=== PATIENT | male | born 1955 | race American Indian/Alaskan Native ===

== ENCOUNTER 2020-03-23 06:06 | Observation (INO) | payer MEDICARE ==
[2020-03-18 12:01] LABS: Hematocrit 38.4 % (35.5-45.6); Hemoglobin 13.2 gm/dl (11.8-15.2); Mean Corpuscular HGB Conc 34 % (32-34); Mean Corpuscular Volume 83 fl (84-94); Platelet Count 216 K/mm3 (140-440); Red Blood Count 4.65 M/mm3 (3.65-5.03)
[2020-03-18 12:07] LABS: Red Cell Distribution Width 21.9 % (13.2-15.2)
[2020-03-18 12:23] LABS: Albumin 4.6 g/dL (3.9-5); Calcium 10.1 mg/dL (8.4-10.2)
--- NOTE | 2020-03-18 13:15 | Anesthesia Consultation ---
Anesthesia Consult and Med Hx Date of service: 03/23/20 - Airway Anesthetic Teeth Evaluation: Partials (upper) ROM Head & Neck: Adequate Mental/Hyoid Distance: Adequate Mallampati Class: Class II Intubation Access Assessment: Probably Good - Pulmonary Exam CTA: Yes - Cardiac Exam Cardiac Exam: RRR - Pre-Operative Health Status ASA Pre-Surgery Classification: ASA3 Proposed Anesthetic Plan: General - Pulmonary Hx Smoking: Yes (quit 6 yrs ago) COPD: Yes (maintance and rescue inhalers) Home Oxygen Therapy: Yes (3L w/ exertion) Hx Sleep Apnea: No (DESHAUN PRE SCREEN HIGH RISK) - Cardiovascular System Hx Hypertension: Yes Hx Heart Attack/AMI: No Hx Percutaneous Transluminal Coronary Angioplasty (PTCA): No Hx Cardia Arrhythmia: No - Central Nervous System CVA: No - Gastrointestinal Hx Gastroesophageal Reflux Disease: No - Endocrine Hx Renal Disease: No Hx Liver Disease: No Hx Insulin Dependent Diabetes: Yes (instructed to take 1/2 usual long acting dose night before surgery) Hx Thyroid Disease: No - Other Systems Hx Obesity: No - Additional Comments Anesthesia Medical History Comments: No hx anesthetic complications.
[~2020-03-23 06:06] MED LIST: ACETAMINOPHEN 500 MG TAB PO SCH; CELECOXIB 200 MG CAP PO NR; GABAPENTIN 300 MG CAP PO NR; LACTATED RINGERS 1,000 ML IV SCH; MAGNESIUM OXIDE 400 MG TAB PO SCH; MIDAZOLAM 2 MG/2 ML INJ IV NR; VANCOMYCIN 1,250 MG in SODIUM CHLORIDE 0.9% 250ML 250 ML IV SCH; VANCOMYCIN/NS 1 GM/250 ML 1 GM/250 ML BAG IV SCH
[2020-03-23] MEDS ORDERED: HYDROmorphone 1 MG/1 ML INJ ONE (07:12)
[2020-03-23] MEDS ORDERED: propofoL 200 MG/20 ML VIAL IV ONE (07:12)
[2020-03-23] MEDS ORDERED: LIDOCAINE MPF (2%) 20 MG/1 ML VIAL 5 ML ONE (07:12)
[2020-03-23] MEDS ORDERED: NEOMY 40 MG/POLYMYXIN B 200,000 UNITS/ML (GU) AMPULE IR ONE (07:13)
[2020-03-23] MEDS ORDERED: SODIUM CHLORIDE 0.9% 50 ML ONE (07:13)
[2020-03-23] MEDS ORDERED: BUPIVACAINE/PF (0.5%) 5 MG/1 ML 30 ML VIAL INFILTRATI ONE ×2 (07:13→08:25)
--- NOTE | 2020-03-23 07:20 | Anesthesia Day of Surgery ---
Anesthesia Day of Surgery - Day of Surgery Patient Examined: Yes Patient H&P Reviewed: Yes Patient is NPO: Yes Pulmonary Clearance: Yes
[2020-03-23] MEDS ORDERED: ALBUTEROL 8.5 GM MDI INHALATION IH ONE (07:42)
[2020-03-23] MEDS ORDERED: ONDANSETRON 4 MG/2 ML INJ IV PRN (08:00)
[2020-03-23] MEDS ORDERED: HYDROmorphone 1 MG/1 ML INJ IV PRN (08:00)
[2020-03-23] MEDS ORDERED: SODIUM CHLORIDE 0.9% 50 ML IVPB IV ONE (08:26)
[2020-03-23] MEDS ORDERED: SODIUM CHLORIDE 0.9% IRR 1,500 ML BOTTLE IR ONE (08:26)
[2020-03-23] MEDS ORDERED: ONDANSETRON 4 MG/2 ML INJ ONE (09:34)
--- NOTE | 2020-03-23 09:47 | Short Stay Summary ---
Short Stay Documentation Date of service: 03/23/20 - History H&P: obtained from office - Allergies and Medications Current Medications: Allergies No Known Allergies Allergy (Verified 03/16/20 16:57) Home Medications Medication Instructions Recorded Confirmed Last Taken Type Albuterol Sulfate [Proventil Hfa] 2 puff IH PRN PRN 03/16/20 03/23/20 03/22/20 08:00 History Aspirin [Adult Aspirin] 81 mg PO DAILY 03/16/20 03/23/20 03/16/20 08:00 History Insulin Glargine [Lantus VIAL] 30 units SUB-Q QHS 03/16/20 03/23/20 03/22/20 17:00 History Metformin HCl [Glucophage] 1,000 mg PO BID 03/16/20 03/23/20 03/22/20 17:00 History Tiotropium [place] [Spiriva 2 puff IH DAILY 03/16/20 03/23/20 03/22/20 08:00 History Respimat] allopurinoL [Zyloprim] 100 mg PO QDAY 03/16/20 03/23/20 03/22/20 08:00 History AtorvaSTATin [Lipitor] 80 mg PO QHS 03/18/20 03/23/20 03/22/20 21:00 History Budesonide/Formoterol Fumarate 2 puff IH DAILY 03/18/20 03/23/20 03/22/20 08:00 History [Symbicort 160-4.5 Mcg Inhaler] Lisinopril/Hydrochlorothiazide 1 each PO DAILY 03/18/20 03/23/20 03/22/20 08:00 History [Zestoretic 10-12.5 mg Tablet] Naproxen [Naprosyn] 500 mg PO PRN PRN 03/18/20 03/18/20 Unknown History glipiZIDE [Glucotrol] 10 mg PO QDAY 03/18/20 03/23/20 03/22/20 08:00 History Active Medications Acetaminophen (Acetaminophen 500 Mg Tab) 1,000 mg PO PREOP BAILEY Stop: 03/23/20 23:59 Last Admin: 03/23/20 07:05 Dose: 1,000 mg Documented by: Celecoxib (Celecoxib 200 Mg Cap) 200 mg PO PREOP NR Stop: 03/23/20 23:59 Last Admin: 03/23/20 07:05 Dose: 200 mg Documented by: Gabapentin (Gabapentin 300 Mg Cap) 300 mg PO PREOP NR Stop: 03/23/20 23:59 Last Admin: 03/23/20 07:05 Dose: 300 mg Documented by: Hydromorphone HCl (Hydromorphone 1 Mg/1 Ml Inj) 0.25 mg IV Q10MIN PRN PRN Reason: Pain, Moderate (4-6) Stop: 03/23/20 17:00 Hydromorphone HCl (Hydromorphone 1 Mg/1 Ml Inj) 0.5 mg IV Q10MIN PRN PRN Reason: Pain , Severe (7-10) Stop: 03/23/20 17:00 Lactated Ringer's (Lactated Ringers) 1,000 mls @ 50 mls/hr IV DIRECT BAILEY Stop: 03/23/20 23:59 Last Admin: 03/23/20 07:10 Dose: 50 mls/hr Documented by: Vancomycin HCl 1,250 mg/ (Sodium Chloride) 275 mls @ 166.667 mls/hr IV PREOP BAILEY Last Admin: 03/23/20 07:20 Dose: 166.667 mls/hr Documented by: Magnesium Oxide (Magnesium Oxide 400 Mg Tab) 400 mg PO PREOP BAILEY Stop: 03/23/20 23:59 Last Admin: 03/23/20 07:05 Dose: 400 mg Documented by: Midazolam HCl (Midazolam 2 Mg/2 Ml Inj) 2 mg IV PREOP NR Stop: 03/23/20 23:59 Ondansetron HCl (Ondansetron 4 Mg/2 Ml Inj) 4 mg IV ONCE PRN PRN Reason: Nausea And Vomiting Stop: 03/23/20 17:00 - Brief post op/procedure progress note Date of procedure: 03/23/20 Pre-op diagnosis: ed Procedure: ipp ams cx 21cm + 3, scrotaplasty Anesthesia: GETA Surgeon: LUL MESA Estimated blood loss: 50-100ml Specimen disposition: to lab (scrotal skin) Condition: stable - Hospital course Hospital course: pt has bactrim & norco post op info on chart WRAP REMOVED---INCISION LOOKS GOOD DC HALL ---DONE - Disposition Condition at discharge: Stable Short Stay Discharge Plan Follow up with: NANETTE LYNCH MD [Primary Care Provider] - 7 Days
[2020-03-23] MEDS ORDERED: DEXTROSE 50% IN WATER (25GM) 50 ML SYRINGE IV PRN (09:48)
[2020-03-23] MEDS ORDERED: NON-FORMULARY EACH (Metformin Hcl [Glucophage] 1,000 MG Tablet) PO SCH (10:00)
[2020-03-23] MEDS ORDERED: NON-FORMULARY EACH (Budesonide/Formoterol Fumarate [Symbicort 160-4.5 Mcg Inhaler] 10.2 GM IH SCH (10:00)
[2020-03-23] MEDS ORDERED: NON-FORMULARY EACH (Tiotropium Bromide [Spiriva Respimat] 4 GM Mist.Inhal) IH SCH (10:00)
[2020-03-23] MEDS ORDERED: NON-FORMULARY EACH (Lisinopril/Hydrochlorothiazide [Zestoretic 10-12.5 Mg Tablet] 1 EACH T PO SCH (10:00)
[2020-03-23] MEDS: HYDROmorphone 1 MG/1 ML INJ IV PRN ×2 (10:09→10:19)
--- NOTE | 2020-03-23 10:19 | Operative Report ---
PREOPERATIVE DIAGNOSIS: Erectile dysfunction. POSTOPERATIVE DIAGNOSIS: Erectile dysfunction. PROCEDURE: Insertion of inflatable penile prosthesis (AMS 21 cm device +3 cm rear tip neon tube pumper) scrotoplasty insertion of intracorporal pharmacologic agent. SURGEON: Dr. Tim Cox DIRECTOR OF COMPENSATION: Ramona Weeks. ANESTHESIA: General. ESTIMATED BLOOD LOSS: Minimal. FLUIDS: Crystalloid. COMPLICATIONS: No complications. INDICATIONS: This patient is a 65-year-old gentleman with history of refractory erectile dysfunction, despite medical management. Discussed options. He reviewed the video. He wants to proceed with surgical intervention. He was cleared from a pulmonary standpoint. His primary care is Dr. Erma Armas. DESCRIPTION OF PROCEDURE: The patient was taken to the operative suite, placed in a supine position. After adequate general anesthesia, he was prepped and draped in a sterile fashion. Babcock catheter was placed on the operative field. A Babcock 60 mL of 0.25% Marcaine was injected into the corporal body. No plaque or curvature could be appreciated. A transscrotal incision was made with the Bovie. Sharp dissection was taken down to the corporal bodies, 2-0 Vicryl stay sutures were placed bilaterally. Corporotomies were made bilaterally as well. Metal Gleason retractor was used for exposure. Gentle dilation of the corporal bodies was performed. Total measurement of 24 cm and therefore, a 21 cm AMS-CX device with 3 cm rear tip extenders was prepped, placed in the corporal bodies without difficulty. A running 2-0 Vicryl stitch was placed bilaterally, 100 mL reservoir was placed in the retropubic space via the right external ring. The quick click connection system was used to inflate, I mean to connect the pump to the reservoir. It was cycled several times with adequate erection, placed the pump in the scrotum. Cycled 1 more time and the pump malfunctioned. The pump was taken down with shots. A new pump was then placed. It cycled again on multiple occasions. At this point, we placed the pump in the dependent portion of the scrotum. A 2-0 Vicryl pursestring stitch was used to secure it in the dependent portion of the scrotum and running stitch of the dartos layer was used to close. The skin was closed with 3-0 Vicryl in an interrupted fashion. Collodion Xeroform gauze and a mummy wrap was placed. The patient tolerated the procedure well and was extubated and taken to recovery room. He will be observed overnight and go home on Bactrim and Dandridge. Ramona Weeks was present for entire procedure to assist. JOB# [id number] JAYNE/SAYDA BROOKS
[2020-03-23] MEDS ORDERED: NALOXONE 0.4 MG/1 ML INJ IV PRN (10:30)
[2020-03-23] MEDS ORDERED: ALBUTEROL 8.5 GM MDI INHALATION IH PRN (11:00)
[2020-03-23] MEDS: SODIUM CHLORIDE 0.45% 1000 ML 1,000 ML IV SCH ×2 (12:10→21:25)
--- NOTE | 2020-03-23 12:31 | Consultation ---
History of Present Illness - Reason for Consult Consult date: 03/23/20 Medical management Requesting physician: LUL MESA - History of Present Illness This is a 75-year-old male with hypertension, COPD on home oxygen of 3 L with exercise, diabetes mellitus, diverticulitis, low testosterone and former smoker (quit in 2014) who is status post penile prosthesis implant on 03/23. We were consulted for medical management while inpatient. Patient denies chest pain, fevers, chills, recent weight loss, hemoptysis, night sweats, recent sick contacts or known exposure to COVID-19. Past History Past Medical History: COPD, diabetes, hypertension, other (Low testosterone, "blister on prostrate", diverticulitis) Past Surgical History: Other ("blister on prostrate" removal) Social history: , lives with family, full code. denies: smoking, alcohol abuse, prescription drug abuse, IV drug use Family history: cancer, diabetes Medications and Allergies Allergies Allergy/AdvReac Type Severity Reaction Status Date / Time No Known Allergies Allergy Verified 03/16/20 16:57 Home Medications Medication Instructions Recorded Confirmed Last Taken Type Albuterol Sulfate [Proventil Hfa] 2 puff IH PRN PRN 03/16/20 03/23/20 03/22/20 08:00 History Aspirin [Adult Aspirin] 81 mg PO DAILY 03/16/20 03/23/20 03/16/20 08:00 History Insulin Glargine [Lantus VIAL] 30 units SUB-Q QHS 03/16/20 03/23/20 03/22/20 17:00 History Metformin HCl [Glucophage] 1,000 mg PO BID 03/16/20 03/23/20 03/22/20 17:00 History Tiotropium [place] [Spiriva 2 puff IH DAILY 03/16/20 03/23/20 03/22/20 08:00 History Respimat] allopurinoL [Zyloprim] 100 mg PO QDAY 03/16/20 03/23/20 03/22/20 08:00 History AtorvaSTATin [Lipitor] 80 mg PO QHS 03/18/20 03/23/20 03/22/20 21:00 History Budesonide/Formoterol Fumarate 2 puff IH DAILY 03/18/20 03/23/20 03/22/20 08:00 History [Symbicort 160-4.5 Mcg Inhaler] Lisinopril/Hydrochlorothiazide 1 each PO DAILY 03/18/20 03/23/20 03/22/20 08:00 History [Zestoretic 10-12.5 mg Tablet] Naproxen [Naprosyn] 500 mg PO PRN PRN 03/18/20 03/18/20 Unknown History glipiZIDE [Glucotrol] 10 mg PO QDAY 03/18/20 03/23/20 03/22/20 08:00 History Active Meds: Active Medications Acetaminophen (Acetaminophen 500 Mg Tab) 1,000 mg PO PREOP B[facility] Stop: 03/23/20 23:59 Last Admin: 03/23/20 07:05 Dose: 1,000 mg Documented by: Hydrocodone Bitart/Acetaminophen (Hydrocodone/Acetaminophen 5-325 Mg Tab) 2 each PO Q6H PRN PRN Reason: Pain, Moderate (4-6) Albuterol (Albuterol 8.5 Gm Mdi Inhalation) 2 puff IH PRN PRN PRN Reason: Shortness Of Breath Allopurinol (Allopurinol 100 Mg Tab) 100 mg PO QDAY [facility] Arformoterol Tartrate (Arformoterol 15 Mcg/2 Ml Nebu) 15 mcg IH Q12HRT [facility] Atorvastatin Calcium (Atorvastatin 40 Mg Tab) 80 mg PO QHS [facility] Budesonide (Budesonide 0.5 Mg/2 Ml Nebu) 1 mg IH Q12HRT [facility] Celecoxib (Celecoxib 200 Mg Cap) 200 mg PO PREOP NR Stop: 03/23/20 23:59 Last Admin: 03/23/20 07:05 Dose: 200 mg Documented by: Dextrose (Dextrose 50% In Water (25gm) 50 Ml Syringe) 50 ml IV Q30MIN PRN; Protocol PRN Reason: Hypoglycemia Gabapentin (Gabapentin 300 Mg Cap) 300 mg PO PREOP NR Stop: 03/23/20 23:59 Last Admin: 03/23/20 07:05 Dose: 300 mg Documented by: Glipizide (Glipizide 10 Mg Tab) 10 mg PO QDDIAB [place] Hydrochlorothiazide (Hydrochlorothiazide 12.5 Mg Cap) 12.5 mg PO QDAY [facility] Hydromorphone HCl (Hydromorphone 1 Mg/1 Ml Inj) 0.25 mg IV Q10MIN PRN PRN Reason: Pain, Moderate (4-6) Stop: 03/23/20 17:00 Hydromorphone HCl (Hydromorphone 1 Mg/1 Ml Inj) 0.5 mg IV Q10MIN PRN PRN Reason: Pain , Severe (7-10) Stop: 03/23/20 17:00 Last Admin: 03/23/20 10:19 Dose: 0.5 mg Documented by: Lactated Ringer's (Lactated Ringers) 1,000 mls @ 50 mls/hr IV DIRECT BAILEY Stop: 03/23/20 23:59 Last Admin: 03/23/20 07:10 Dose: 50 mls/hr Documented by: Sodium Chloride (Nacl 0.45% 1000 Ml) 1,000 mls @ 100 mls/hr IV DIRECT BAILEY Vancomycin HCl (Vancomycin/Ns 1 Gm/250 Ml) 1 gm in 250 mls @ 167.007 mls/hr IV Q12H [facility] Stop: 03/23/20 21:30 Insulin Glargine (Insulin Glargine 100 Units/Ml) 30 units SUB-Q QHS [facility] Lisinopril (Lisinopril 10 Mg Tab) 10 mg PO QDAY [facility] Magnesium Oxide (Magnesium Oxide 400 Mg Tab) 400 mg PO PREOP B[place] Stop: 03/23/20 23:59 Last Admin: 03/23/20 07:05 Dose: 400 mg Documented by: Metformin HCl (Metformin 500 Mg Tab) 1,000 mg PO BIDDIAB [facility] Midazolam HCl (Midazolam 2 Mg/2 Ml Inj) 2 mg IV PREOP NR Stop: 03/23/20 23:59 Morphine Sulfate (Morphine 2 Mg/1 Ml Inj) 2 mg IV Q4H PRN PRN Reason: Pain, Moderate (4-6) Naloxone HCl (Naloxone 0.4 Mg/1 Ml Inj) 0.1 mg IV Q2MIN PRN PRN Reason: Res Rate </= 8 or 02 SAT < 92% Ondansetron HCl (Ondansetron 4 Mg/2 Ml Inj) 4 mg IV ONCE PRN PRN Reason: Nausea And Vomiting Stop: 03/23/20 17:00 Tiotropium [place] (Tiotropium 18 Mcg Cap Inhalation) 1 puff IH Q24HRT [facility] Review of Systems Constitutional: night sweats (Occasional since stopping testosterone replacement therapy), no weight loss, no weight gain, no fever, no chills, no sweats, no fatigue, no weakness, no lethargy, no chronic headaches Ears, nose, mouth and throat: no ear pain, no ear discharge, no tinnitis, no decreased hearing, no nose pain, no nasal congestion, no nasal discharge, no sinus pressure, no sinus pain, no epistaxis, no bleeding gums, no mouth pain, no hoarseness, no post-nasal drip, no neck fullness/pressure Cardiovascular: lightheadedness (Occasionally with leaning forward), dyspnea on exertion, high blood pressure, no chest pain, no orthopnea, no palpitations, no rapid/irregular heart beat, no edema, no syncope, no leg edema Respiratory: cough, shortness of breath, dyspnea on exertion, home oxygen, no cough with sputum, no excessive sputum, no hemoptysis Gastrointestinal: no abdominal pain, no nausea, no vomiting, no diarrhea, no constipation, no change in bowel habits, no hematemesis Genitourinary Male: urinary hesitancy, incontinence, decreased libido, no dysuria, no hematuria, no flank pain, no discharge, no urinary frequency, no nocturia, no polyuria Rectal: other, no incontinence, no bleeding, no itching, no hemorrhoids Musculoskeletal: no neck stiffness, no neck pain, no shooting arm pain, no arm numbness/tingling, no low back pain, no shooting leg pain, no leg numbness/tingling, no frequent falls, no fractures Integumentary: no rash, no pruritis, no redness, no sores, no wounds, no jaundice, no growths, no darkening of skin, no depigmentation, no dryness Neurological: no head injury, no transient paralysis, no paralysis, no weakness, no parathesias, no numbness, no tingling, no seizures, no syncope, no tremors, no headaches, no change in speech, no change in mentation, no memory loss, no changes in smell/taste, no paralysis Psychiatric: no anxiety, no suicidal ideation, no depression, no confusion Endocrine: no cold intolerance, no heat intolerance, no polyphagia, no excessive thirst, no polydipsia, no polyuria, no nocturia, no excessive sweating, no increase in ring/shoe/hat size, no palpatations, no high blood sugars Hematologic/Lymphatic: no easy bruising, no easy bleeding Allergic/Immunologic: no urticaria, no seasonal allergies Exam - Constitutional Vitals: Temp Pulse Resp BP Pulse Ox 97.5 F L 67 18 140/88 99 03/23/20 12:00 03/23/20 12:00 03/23/20 12:00 03/23/20 12:00 03/23/20 12:00 General appearance: Present: no acute distress - EENT Eyes: Present: PERRL, EOM intact ENT: hearing intact, clear oral mucosa, dentition normal - Neck Neck: Present: normal ROM - Respiratory Respiratory effort: normal Respiratory: bilateral: CTA - Cardiovascular Rhythm: regular Heart Sounds: Present: S1 & S2. Absent: systolic murmur, diastolic murmur - Extremities Extremities: no ischemia, pulses intact, pulses symmetrical, No edema, normal temperature, normal color, Full ROM Peripheral Pulses: within normal limits - Abdominal General gastrointestinal: Present: soft, non-tender, non-distended, normal bowel sounds Male genitourinary: Present: tender, penile edema - Integumentary Integumentary: Present: clear, warm, dry - Musculoskeletal Musculoskeletal: strength equal bilaterally - Psychiatric Psychiatric: appropriate mood/affect, cooperative - Neurologic Neurologic: CNII-XII intact, no focal deficits, moves all extremities - Allied Health Allied health notes reviewed: nursing Results - Labs CBC & Chem 7: 03/18/20 11:30 03/18/20 11:30 Labs: Abnormal lab results 03/23/20 03/23/20 Range/Units 06:55 10:03 POC Glucose 111 H 107 H (70-105) mg/dL Assessment and Plan - Patient Problems (1) HTN (hypertension) Current Visit: Yes Status: Chronic Plan to address problem: -Resume home hypertension regimen and titrate as needed Blood pressure monitoring per protocol IV hydralazine for SBP greater than 160 as needed (2) Diabetes mellitus Current Visit: Yes Status: Chronic Qualifiers: Diabetes mellitus type: type 2 Plan to address problem: -Resume home antidiabetic regimen -SSI -Accu-Cheks AC at bedtime -CC cardiac diet (3) COPD (chronic obstructive pulmonary disease) Current Visit: Yes Status: Chronic Plan to address problem: -Resume home pulmonary regimen -Supplemental oxygen as needed -Pulmonary hygiene -SPO2 monitoring (4) DVT prophylaxis Current Visit: Yes Status: Acute Plan to address problem: -SCDs to BLE while in bed -Lovenox subq per primary
[2020-03-23] MEDS: LISINOPRIL 10 MG TAB PO SCH (13:11)
[2020-03-23] MEDS: hydroCHLOROthiazide 12.5 MG CAP PO SCH (13:11)
--- NOTE | 2020-03-23 14:09 | Post Anesthesia Evaluation ---
- Post Anesthesia Evaluation Patient Participated: Yes Airway Patent: Yes Stable Respiratory Function: Yes Nausea/Vomiting: No Temp > 96.8F: Yes Pain Manageable: Yes Adequeate Hydration: Yes Anesthesia Complications: No Block Receding Appropriately: Not Applicable Patient on Ventilator: No
[2020-03-23] MEDS ORDERED: hydrALAZINE 20 MG/1 ML INJ IV PRN (15:36)
[2020-03-23 16:38] LABS: Basophils % (Auto) 0.4 % (0.0-1.8); Eosinophils % (Auto) 0.5 % (0.0-4.3); Hematocrit 35.8 % (35.5-45.6); Hemoglobin 12.1 gm/dl (11.8-15.2); Lymphocytes # (Auto) 1.4 K/mm3 (1.2-5.4); Lymphocytes % (Auto) 15.7 % (13.4-35.0); Mean Corpuscular HGB Conc 34 % (32-34); Mean Corpuscular Volume 84 fl (84-94); Monocytes # (Auto) 0.6 K/mm3 (0.0-0.8); Monocytes % (Auto) 6.4 % (0.0-7.3); Platelet Count 192 K/mm3 (140-440); Red Blood Count 4.27 M/mm3 (3.65-5.03)
[2020-03-23 16:55] LABS: BUN/Creatinine Ratio 18; Blood Urea Nitrogen 22 mg/dL (9-20); Hemolysis Index 2
[2020-03-23] MEDS: MORPHINE 2 MG/1 ML INJ IV PRN (17:03)
[2020-03-23] MEDS: glipiZIDE 10 MG TAB PO SCH (17:06)
[2020-03-23] MEDS: allopurinoL 100 MG TAB PO SCH (17:06)
[2020-03-23] MEDS: metFORMIN 500 MG TAB PO SCH (17:06)
[2020-03-23] MEDS: BUDESONIDE 0.5 MG/2 ML NEBU IH SCH ×2 (17:53→21:43)
[2020-03-23] MEDS: ARFORMOTEROL 15 MCG/2 ML NEBU IH SCH ×2 (17:54→21:42)
[2020-03-23] MEDS: TIOTROPIUM 18 MCG CAP INHALATION IH SCH (18:42)
[2020-03-23] MEDS ORDERED: VANCOMYCIN/NS 1 GM/250 ML 1 GM/250 ML BAG IV SCH (20:00)
[2020-03-23] MEDS: HYDROcodone/ACETAMINOPHEN 5-325 MG TAB PO PRN (21:20)
[2020-03-23] MEDS ORDERED: INSULIN GLARGINE 100 UNITS/ML SUB-Q SCH (22:00)
[2020-03-24] MEDS: MORPHINE 2 MG/1 ML INJ IV PRN (05:39)
[2020-03-24] MEDS: BUDESONIDE 0.5 MG/2 ML NEBU IH SCH (08:48)
[2020-03-24] MEDS: metFORMIN 500 MG TAB PO SCH (08:51)
[2020-03-24] MEDS: HYDROcodone/ACETAMINOPHEN 5-325 MG TAB PO PRN (08:51)
[2020-03-24] MEDS ORDERED: BUDESONIDE 0.5 MG/2 ML NEBU IH SCH (09:00)
[2020-03-24] MEDS: glipiZIDE 10 MG TAB PO SCH (09:14)
[2020-03-24] MEDS: ARFORMOTEROL 15 MCG/2 ML NEBU IH SCH (09:18)
[2020-03-24] MEDS: TIOTROPIUM 18 MCG CAP INHALATION IH SCH (09:18)
[2020-03-24] MEDS: LISINOPRIL 10 MG TAB PO SCH (10:20)
[2020-03-24] MEDS: allopurinoL 100 MG TAB PO SCH (10:20)
[2020-03-24] MEDS: hydroCHLOROthiazide 12.5 MG CAP PO SCH (10:20)
[2020-03-24 11:34] VITALS: BP 127/79
--- NOTE | 2020-03-24 13:42 | Progress Note ---
Assessment and Plan - Patient Problems (1) HTN (hypertension) Current Visit: Yes Status: Chronic Plan to address problem: -Resume home hypertension regimen and titrate as needed Blood pressure monitoring per protocol IV hydralazine for SBP greater than 160 as needed -Upon discharge patient will resume his home antihypertensive regimen and blood pressure monitoring per primary care physician instructions (2) Diabetes mellitus Current Visit: Yes Status: Chronic Qualifiers: Diabetes mellitus type: type 2 Plan to address problem: -Resume home antidiabetic regimen -SSI -Accu-Cheks AC at bedtime -CC cardiac diet -Upon discharge patient will resume his home antidiabetic regimen and blood glucose checks per primary care physician instructions (3) COPD (chronic obstructive pulmonary disease) Current Visit: Yes Status: Chronic Plan to address problem: -Resume home pulmonary regimen -Supplemental oxygen as needed -Pulmonary hygiene -SPO2 monitoring Upon discharge we will need to follow-up with his primary care physician or e commerce specialist as needed he will continue his home pulmonary regimen (4) DVT prophylaxis Current Visit: Yes Status: Acute Plan to address problem: -SCDs to BLE while in bed -Lovenox subq per primary History Interval history: This is a 75-year-old male with hypertension, COPD on home oxygen of 3 L with exercise, diabetes mellitus, diverticulitis, low testosterone and former smoker (quit in 2014) who is status post penile prosthesis implant on 03/23. He states that he is feeling better however is having pain control issues. No acute events reported overnight. Hospitalist Physical - Constitutional Vitals: Temp Pulse Resp BP Pulse Ox 97.5 F L 59 L 18 127/79 98 03/24/20 11:19 03/24/20 11:19 03/24/20 11:19 03/24/20 11:19 03/24/20 11:19 General appearance: Present: mild distress - EENT Eyes: Present: PERRL, EOM intact ENT: hearing intact, clear oral mucosa, dentition normal - Neck Neck: Present: normal ROM - Respiratory Respiratory effort: normal Respiratory: bilateral: CTA - Cardiovascular Rhythm: regular Heart Sounds: Present: S1 & S2. Absent: systolic murmur, diastolic murmur - Extremities Extremities: no ischemia, pulses intact, pulses symmetrical, No edema, normal temperature, normal color, Full ROM Peripheral Pulses: within normal limits - Abdominal General gastrointestinal: soft, non-tender, non-distended, normal bowel sounds - Integumentary Integumentary: Present: clear, warm, dry - Psychiatric Psychiatric: cooperative - Neurologic Neurologic: CNII-XII intact, no focal deficits, moves all extremities - Allied Health Allied health notes reviewed: nursing Results - Labs CBC & Chem 7: 03/23/20 15:47 03/23/20 15:47 Labs: Laboratory Last Values WBC 9.1 K/mm3 (4.5-11.0) 03/23/20 15:47 RBC 4.27 M/mm3 (3.65-5.03) 03/23/20 15:47 Hgb 12.1 gm/dl (11.8-15.2) 03/23/20 15:47 Hct 35.8 % (35.5-45.6) 03/23/20 15:47 MCV 84 fl (84-94) 03/23/20 15:47 MCH 28 pg (28-32) 03/23/20 15:47 MCHC 34 % (32-34) 03/23/20 15:47 RDW 22.0 % (13.2-15.2) H 03/23/20 15:47 Plt Count 192 K/mm3 (140-440) 03/23/20 15:47 Lymph % (Auto) 15.7 % (13.4-35.0) 03/23/20 15:47 [place] % (Auto) 6.4 % (0.0-7.3) 03/23/20 15:47 Eos % (Auto) 0.5 % (0.0-4.3) 03/23/20 15:47 Baso % (Auto) 0.4 % (0.0-1.8) 03/23/20 15:47 Lymph # (Auto) 1.4 K/mm3 (1.2-5.4) 03/23/20 15:47 [place] # (Auto) 0.6 K/mm3 (0.0-0.8) 03/23/20 15:47 Eos # (Auto) 0.0 K/mm3 (0.0-0.4) 03/23/20 15:47 Baso # (Auto) 0.0 K/mm3 (0.0-0.1) 03/23/20 15:47 Seg Neutrophils % 77.0 % (40.0-70.0) H 03/23/20 15:47 Seg Neutrophils # 7.0 K/mm3 (1.8-7.7) 03/23/20 15:47 Sodium 136 mmol/L (137-145) L 03/23/20 15:47 Potassium 4.5 mmol/L (3.6-5.0) 03/23/20 15:47 Chloride 100.5 mmol/L (98-107) 03/23/20 15:47 Carbon Dioxide 27 mmol/L (22-30) 03/23/20 15:47 Anion Gap 13 mmol/L 03/23/20 15:47 BUN 22 mg/dL (9-20) H 03/23/20 15:47 Creatinine 1.2 mg/dL (0.8-1.3) 03/23/20 15:47 Estimated GFR > 60 ml/min 03/23/20 15:47 BUN/Creatinine Ratio 18 % 03/23/20 15:47 Glucose 219 mg/dL (75-100) H 03/23/20 15:47 POC Glucose 127 mg/dL (70-105) H 03/24/20 11:19 Calcium 9.0 mg/dL (8.4-10.2) 03/23/20 15:47 Total Bilirubin 0.30 mg/dL (0.1-1.2) 03/18/20 11:30 AST 22 units/L (5-40) 03/18/20 11:30 ALT 19 units/L (7-56) 03/18/20 11:30 Alkaline Phosphatase 67 units/L (35-129) 03/18/20 11:30 Total Protein 7.6 g/dL (6.3-8.2) 03/18/20 11:30 Albumin 4.6 g/dL (3.9-5) 03/18/20 11:30 Albumin/Globulin Ratio 1.5 % 03/18/20 11:30 Coronavirus (PCR) Negative (Negative) 03/18/20 17:07 Babcock/IV: Voiding Method Urinal IV Catheter Type [Right Hand] INT / Saline Lock Active Medications - Current Medications Current Medications: Generic Name Dose Route Start Last Admin Trade Name Freq PRN Reason Stop Dose Admin Hydrocodone Bitart/Acetaminophen 2 each 03/23/20 10:30 03/24/20 08:51 Hydrocodone/Acetaminophen 5-325 Mg Tab PO 2 each Q6H PRN Administration Pain, Moderate (4-6) Albuterol 2 puff 03/23/20 11:00 Albuterol 8.5 Gm Mdi Inhalation IH PRN PRN Shortness Of Breath Allopurinol 100 mg 03/23/20 10:00 03/24/20 10:20 Allopurinol 100 Mg Tab PO 100 mg QDAY B[facility] Administration Arformoterol Tartrate 15 mcg 03/23/20 12:00 03/24/20 09:18 Arformoterol 15 Mcg/2 Ml Nebu IH 15 mcg Q12HRT [facility] Administration Atorvastatin Calcium 80 mg 03/23/20 22:00 03/23/20 22:13 Atorvastatin 40 Mg Tab PO 80 mg QHS [facility] Administration Budesonide 0.5 mg 03/24/20 09:00 03/24/20 09:18 Budesonide 0.5 Mg/2 Ml Nebu IH 0.5 mg Q12HRT [facility] Administration Dextrose 50 ml 03/23/20 09:48 Dextrose 50% In Water (25gm) 50 Ml Syringe IV Q30MIN PRN Hypoglycemia Protocol Glipizide 10 mg 03/23/20 11:00 03/24/20 09:14 Glipizide 10 Mg Tab PO 10 mg QDDIAB [facility] Administration Hydralazine HCl 10 mg 03/23/20 15:36 Hydralazine 20 Mg/1 Ml Inj IV Q4HR PRN Hypertension Hydrochlorothiazide 12.5 mg 03/23/20 12:00 03/24/20 10:20 Hydrochlorothiazide 12.5 Mg Cap PO 12.5 mg QDAY [facility] Administration Sodium Chloride 1,000 mls @ 100 mls/hr 03/23/20 10:00 03/23/20 21:25 Nacl 0.45% 1000 Ml IV 100 mls/hr DIRECT BAI[facility] Administration Insulin Glargine 30 units 03/23/20 22:00 03/23/20 21:19 Insulin Glargine 100 Units/Ml SUB-Q 30 units QHS [facility] Administration Lisinopril 10 mg 03/23/20 12:00 03/24/20 10:20 Lisinopril 10 Mg Tab PO 10 mg QDAY [facility] Administration Metformin HCl 1,000 mg 03/23/20 17:00 03/24/20 08:51 Metformin 500 Mg Tab PO 1,000 mg BIDDIAB [facility] Administration Morphine Sulfate 2 mg 03/23/20 10:30 03/24/20 05:39 Morphine 2 Mg/1 Ml Inj IV 2 mg Q4H PRN Administration Pain, Moderate (4-6) Naloxone HCl 0.1 mg 03/23/20 10:30 Naloxone 0.4 Mg/1 Ml Inj IV Q2MIN PRN Res Rate </= 8 or 02 SAT < 92% Tiotropium [place] 1 puff 03/23/20 13:00 03/24/20 09:18 Tiotropium 18 Mcg Cap Inhalation IH Not Given Q24HRT [facility]
== END 2020-03-24 13:40 | disposition home or self-care (01) ==
LOC: OR 06:06 → 3A 09:48 → 3B-SURG 11:33
PROVIDERS: ADMIT Urology; ATTEND Urology
DX: N52.9 Male erectile dysfunction, unspecified (principal); Z20.828 Contact with and (suspected) exposure to other viral communicable diseases; I10 Essential (primary) hypertension; J44.9 Chronic obstructive pulmonary disease, unspecified; E11.9 Type 2 diabetes mellitus without complications; K57.92 Diverticulitis of intestine, part unspecified, without perforation or abscess without bleeding; Z87.891 Personal history of nicotine dependence; Z98.890 Other specified postprocedural states; Z79.4 Long term (current) use of insulin; Z79.82 Long term (current) use of aspirin
CPT/HCPCS: 36415; 54401; 55175; 80048; 80053; 82962; 85025; 85027; 88305; 94640; 94760; 96361; 96365; 96366; 96375; 96376; A9270; C1813; G0378; J1170; J2270; J2405; J2704; J3370; J7030; J7050; J7120; U0003; J1815; J2250